=== PATIENT | female | born 1985 | race Caucasian/White ===

== ENCOUNTER 2018-01-28 06:51 | Inpatient (IN) | payer OTHER ==
[~2018-01-28] VITALS: Ht 154.9 cm; Wt 68.0 kg
[~2018-01-28 06:51] MED LIST: ADDERALL20 MG PO; ATIVAN0.5 MG PO; BIOTIN1000 MCG PO; BUSPIRONE10 MG PO; CLINDAMYCIN PHO30 ML TOP; CLONAZEPAM0.5 MG; CLONAZEPAM0.5 MG PO; DOLOBID500 MG PO; DOXYCYCLINE100 MG PO; ESCITALOPRAM20 MG PO; GABAPENTIN300 MG PO; KLONOPIN 1MG TAB1 MG PO; LEVSIN0.125 MG PO; LITHIUM CARBON300 M4 PO; LOMOTIL 0.025 M1 TAB PO; MAGNESIUM250 M1 PO; MEDROL DOSEPAK1 PAC PO; MIRTAZAPINE15 M2 PO; MOTRIN 600 MG600 MG PO; NEURONTIN300 MG PO; NEURONTIN800 M2 PO; ORTHO TRI-CYCLE1 TA1 PO; PERCOCET 325 MG1 TA2 PO; PRAZOSIN HCL1 MG; QUETIAPINE FUM200 M1 PO; RISPERIDONE0.5 MG PO; STRATTERA100 MG PO; TRAZODONE HCL50 M1 PO; TRAZODONE150 MG PO; TRETINOIN 0.05% TOP; ULTRAM(MONOGRAP50 MG PO; VENLAFAXINE HY150 MG PO; VENLAFAXINE HYD75 M1 PO; VIBRAMYCIN 100100 MG PO; VICODIN 300 MG-1 TAB PO; VITAMIN B COMPL1 CAP PO; VITAMIN C500 M3 PO; ZINC10 MG PO; ZOFRAN 4 MG TABL4 MG PO
[2018-01-28 07:49] LABS: ABSOLUTE BASOPHIL COUNT 0 /CUMM (0.0-0.2); ABSOLUTE EOSINOPHIL COUNT 0.5 /CUMM (0.0-0.7); ABSOLUTE LYMPH COUNT 3.3 /CUMM (1.2-3.4); ABSOLUTE MONOCYTE COUNT 0.5 /CUMM (0.10-0.60); BASOPHIL % 0.3 % (0.0-2.0); EOSINOPHIL % 5.9 % (0-5); GRANULOCYTE % 53.2 % (42.2-75.2); HEMATOCRIT 39.4 % (37-47); MEAN CORPUSCULAR HGB 30.1 PG (27.0-31.0); MEAN CORPUSCULAR HGB CONC 33.9 G/DL (33.0-37.0); MEAN CORPUSCULAR VOLUME 88.7 FL (81.0-99.0); MEAN PLATELET VOLUME 8.3 FL (7.4-10.4); PLATELET COUNT 297 /CUMM (130-400); RBC DISTRIBUTION WIDTH 13.2 % (11.5-14.5); RED BLOOD CELL CT 4.44 /CUMM (4.20-5.40); WHITE BLOOD CELL COUNT 9.4 /CUMM (4.8-10.8)
[2018-01-28] MEDS ORDERED: LINZESS290 MC1 PO (08:14)
[2018-01-28] MEDS ORDERED: DEXILANT60 M1 PO (08:14)
[2018-01-28] MEDS ORDERED: MELATONIN10 M2 PO (08:15)
[2018-01-28] MEDS ORDERED: ZUBSOLV 8.6-2.1 EACH SL (08:16)
--- NOTE | 2018-01-28 09:39 | ED GI/GU/ABDOMINAL COMPLAINT ---
History of Present Illness General Chief Complaint: Abdominal Pain/Flank Pain Stated Complaint: "UM I HAVE A KIDNEY INFECTION AND UTI AND PAIN" Source: patient, old records Exam Limitations: no limitations Vital Signs & Intake/Output Vital Signs & Intake/Output Vital Signs Date Time Temp Pulse Resp B/P B/P Pulse O2 O2 Flow FiO2 Mean Ox Delivery Rate 01/28 1035 98.3 59 12 101/55 100 Room Air 01/28 0731 98.0 75 15 112/71 100 Room Air Room Air Allergies Coded Allergies: cyclobenzaprine (PER PT HAS SAME ACTIVE INGREDIENTS COMPAZINE PER MD 09/23/15 ) sulfamethoxazole (Mild, Flu Like Sx 09/23/15) trimethoprim (Mild, Flu Like Sx 09/23/15) prochlorperazine (Seizure 09/23/15) Reconcile Medications Buprenorphine HCl/Naloxone HCl (Zubsolv 8.6-2.1 MG Tablet Sl) 8.6 MG-2.1 MG TAB.SUBL 1 TAB SL BID MAINTENCE (Reported) Dexlansoprazole (Dexilant) 60 MG CAP.BP 1 CAP PO DAILY GI (Reported) Gabapentin (Neurontin) 800 MG TABLET 1 TAB PO TID NEUROPATHY (Reported) Linaclotide (Linzess) 290 MCG CAPSULE 1 CAP PO DAILY GI (Reported) Melatonin 10 MG TABLET 1 TAB PO QPM SLEEP (Reported) Quetiapine Fumarate 200 MG TABLET 1 TAB PO QPM MENTAL HEALTH (Reported) Triage Note: PT TO ED FOR C/C OF L FLANK PAIN THAT RADIATES INTO GROIN AREA X 3 DAYS. PT RECENTLY DIAGNOSED WITH KIDNEY INFECTION LAST MONTH AND FINISHED COURSE OF ANTIBIOTICS APPROX 1 MONTH AGO. REPORTS SOME MILD NAUSEA WITHOUT VOMITING. +DYSURIA Triage Nurses Notes Reviewed? yes LMP (ages 10-50): unknown ? n Is pt currently ? No Onset: 1 month Duration: week(s):, constant, continues in ED, getting worse Timing: recent history Quality/Severity: aching, moderate, severe, stabbing Location: left flank Radiation: LLQ Activities at Onset: rest Prior Abdominal Problems: similar symptoms Past Sexual History: Unobtainable at this time Modifying Factors: Worsens With: palpation, urinating. Associated Symptoms: abdominal pain, dysuria, loss of appetite, lower back pain, urinary frequency HPI: 1 month prior to admission patient was started on Macrobid for dysuria frequency. 2 weeks prior to admission she had continued symptoms and Keflex was prescribed. Prior to admission she complained of sharp left flank pain radiating to the left lower quadrant with continued dysuria and frequency. She denies fever chills nausea vomiting diarrhea chest pain cough shortness of breath headache rash bleeding. Past History Travel History Traveled to [place] past 21 day No Medical History Any Pertinent Medical History? 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 No Review of Systems Review of Systems Constitutional: Reports: no symptoms. EENTM: Reports: no symptoms. Respiratory: Reports: no symptoms. Cardiovascular: Reports: no symptoms. GI: Reports: see HPI, abdominal pain. Genitourinary: Reports: see HPI, dysuria, frequency, pain. Musculoskeletal: Reports: no symptoms. Skin: Reports: no symptoms. Neurological/Psychological: Reports: no symptoms. Hematologic/Endocrine: Reports: no symptoms. Immunologic/Allergic: Reports: no symptoms. All Other Systems: Reviewed and Negative Physical Exam Physical Exam General Appearance: well developed/nourished, alert, awake, anxious, mild distress Head: atraumatic, normal appearance Eyes: Bilateral: normal appearance, PERRL, EOMI, normal inspection. Ears, Nose, Throat, Mouth: hearing grossly normal, moist mucous membrane Neck: normal inspection, supple, full range of motion, normal alignment, no midline tenderness Respiratory: normal breath sounds, chest non-tender, no respiratory distress, quiet respiration, lungs clear Cardiovascular: regular rate/rhythm, normal peripheral pulses, norml femoral pulses equa Peripheral Pulses: 4+ carotid (R), 4+ carotid (L) Gastrointestinal: normal bowel sounds, soft, non-tender, no organomegaly Back: normal inspection, normal range of motion, CVA tenderness (L), no vertebral tenderness Extremities: normal range of motion, no ligament instability Neurologic/Psych: no motor/sensory deficits, awake, alert, oriented x 3, normal gait, normal mood/affect, head of marketing II-XII nml as tested Skin: intact, normal color, warm/dry Core Measures ACS in differential dx? No Sepsis Present: No Sepsis Focused Exam Completed? No Progress Differential Diagnosis: intrauterine , kidney stone, ovarian cyst, PUD/ GERD, UTI/pyelo Plan of Care: Orders Procedure Date/time Status Regular Diet 01/28 L Active Patient Data 01/28 1140 Active OXYGEN SETUP (GEN) 01/28 1137 Active Saline Lock 01/28 1137 Active Admit to inpatient 01/28 1137 Active Vital Signs 01/28 113 Active Activity/Ambulation 01/28 113 Active Code Status 01/28 113 Active Add-on Test (ER Only) 01/28 0845 Active CULTURE,URINE 01/28 07 Active Intake & Output 01/28 0736 Active URINALYSIS 01/28 0656 Complete LIPASE 01/28 06 Complete HEPATIC FUNCTION PANEL 01/29 656 Complete HUMAN BETA HCG SCREEN 01/29 656 Complete CBC WITHOUT DIFFERENTIAL 01/29 656 Complete BASIC METABOLIC PANEL 01/29 656 Complete AMYLASE 01/28 0656 Complete Laboratory Tests 01/28/18 0808: Anion Gap 9, Estimated GFR > 60, BUN/Creatinine Ratio 13.3, Glucose 127 H, Calcium 8.8, Total Bilirubin 0.2, Direct Bilirubin 0.2, AST 36, ALT 42, Alkaline Phosphatase 45, Total Protein 6.3, Albumin 3.3 L, Amylase 64, Lipase 52, Total Beta HCG NEGATIVE 01/28/18 0737: Urine Color YEL, Urine Clarity HAZY H, Urine pH 6.0, Ur Specific [place] >= 1.030, Urine Protein NEG, Urine Ketones NEG, Urine Nitrite NEG, Urine Bilirubin NEG, Urine Urobilinogen 0.2, Ur Leukocyte Esterase SMALL H, Ur Microscopic SEDIMENT EXAMINED, Urine RBC RARE, Urine WBC 50-75 H, Ur Epithelial Cells MANY H, Urine Bacteria MANY H, Urine Mucus FEW, Urine Hemoglobin NEG, Urine Glucose NEG 01/28/18 0727: CBC w Diff NO MAN DIFF REQ, RBC 4.44, MCV 88.7, MCH 30.1, MCHC 33.9, RDW 13.2, MPV 8.3, Gran % 53.2, Lymphocytes % 35.4, Monocytes % 5.2, Eosinophils % 5.9 H, Basophils % 0.3, Absolute Granulocytes 5.0, Absolute Lymphocytes 3.3, Absolute Monocytes 0.5, Absolute Eosinophils 0.5, Absolute Basophils 0 Microbiology 01/28 737 URINE ROUT: Urine Culture - RECD Diagnostic Imaging: Viewed by Me: CT Scan. Discussed w/RAD: CT Scan. Radiology Impression: No acute findings in the abdomen or pelvis. Specifically, no evidence of urolithiasis, urinary tract obstruction or perinephric fluid/ edema. Initial ED EKG: none Departure Departure Disposition: STILL A PATIENT Condition: Fair Clinical Impression Primary Impression: Failure of outpatient treatment Secondary Impressions: Pyelonephritis Referrals: Patient Has No Primary Care Dr (PCP/Family) Departure Forms: Customer Survey General Discharge Information Admission Note Spoke With: Dano Ramos MD Documentation of Exam: Documentation of any treatments & extenuating circumstances including Concerns Regarding Discharge (functional status, medication knowledge or non-compliance, living conditions, etc.) that warrant an admission rather than observation: IV antibiotics as outpatient antibiotics x 2 were unsuccessful in eradicating UTI analgesia serial lab exam follow cultures which will be completed in over 48 hours medication adjustment continuing care discharge planning
--- NOTE | 2018-01-28 09:59 | CT SCAN REPORT ---
EXAMINATION: CT ABDOMEN AND PELVIS WITHOUT CONTRAST CLINICAL INFORMATION: Renal colic. Left flank, costovertebral tenderness pain. Dysuria. COMPARISON: None TECHNIQUE: Multidetector volumetric imaging was performed from the superior aspect of the liver through the pubic symphysis. Sagittal and coronal reformatted images were obtained on the technologist's workstation. DLP: 327 mGy-cm FINDINGS: LUNG BASES: Unremarkable. LIVER, GALLBLADDER, AND BILIARY TREE: Unremarkable. PANCREAS: Unremarkable. SPLEEN: Unremarkable. ADRENAL GLANDS: Unremarkable. KIDNEYS AND URETERS: Kidneys have normal size, cortical thickness and attenuation. No urolithiasis, hydroureteronephrosis, perinephric fluid or perinephric edema. Two phleboliths are seen in the left lower pelvis. BLADDER: Unremarkable. GASTROINTESTINAL TRACT: Bowel loops are normal in caliber. Appendix is normal. No evidence of inflammation or obstruction along the gastrointestinal tract. No ascites or pneumoperitoneum. ABDOMINAL WALL: Unremarkable. LYMPH NODES: Normal. VASCULAR: Unremarkable for a noncontrast examination. Abdominal aorta is normal in caliber. PELVIC VISCERA: The anteflexed uterus is grossly normal. No adnexal mass or pelvic free fluid. OSSEOUS STRUCTURES: At T9-T10, there is degenerative disc space narrowing, endplate irregularity and osteophyte formation. Bone island of the inferior right iliac bone. No suspicious osseous lesions. IMPRESSION: No acute findings in the abdomen or pelvis. Specifically, no evidence of urolithiasis, urinary tract obstruction or perinephric fluid/edema.
--- NOTE | 2018-01-28 12:11 | History & Physical ---
Willian Hernandez 01/28/18 1210: General Information and HPI MD Statement: I have seen and personally examined DARIN MARTE and documented this H&P. The patient is a 32 year old F who presented with a patient stated chief complaint of [abdominal pain and dysuria]. Source of Information: patient, old records Exam Limitations: no limitations History of Present Illness: 32-year-old woman [id number], past history significant for substance abuse disorder on Zubsolv, history of suicide attempt, recurrent UTIs coming in for evaluation of abdominal pain and dysuria. She was recently treated by her PCP Dr. Giuliana Vigil December 27 with 3 days of ciprofloxacin and nitrofurantoin 7 days with metronidazole. Patient states that she noticed some mild improvement however the last few days she reports having sharp lower abdominal pain left side more than right side with some radiation to her left side of her back. A few days ago the pain was severe 10 out of 10. Yesterday she reports some mild chills, nausea and dysuria and increased frequency of 2 days duration. Denies fevers, shortness of breath, chest pain, palpitation, hematuria, vaginal discharge, rashes, joint pain or vomiting. Currently in a monogamous heterosexual relationship. Reports having multiple partners last year. Denies history of STDs in the past. Her last menstrual period was 3 weeks ago. States that she has normal menses with no excessive bleeding. Allergies/Medications Allergies: Coded Allergies: cyclobenzaprine (PER PT HAS SAME ACTIVE INGREDIENTS COMPAZINE PER 09/23/15 ) sulfamethoxazole (Mild, Flu Like Sx 09/23/15) trimethoprim (Mild, Flu Like Sx 09/23/15) prochlorperazine (Seizure 09/23/15) Compliance With Home Meds: GOOD Past History Travel History Traveled to [place] past 21 day No Medical History Neurological: NONE EENT: NONE Cardiovascular: hyperlipidemia Respiratory: asthma Gastrointestinal: NONE Hepatic: NONE Renal: NONE Musculoskeletal: chronic back pain, fracture Psychiatric: anxiety, bipolar disease, depression, insomnia, substance abuse ( using Marijuana; rx'd Klonopin) Endocrine: NONE Blood Disorders: NONE Cancer(s): NONE 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 Exam & Diagnostic Data Last 24 Hrs of Vital Signs/I&O Vital Signs Date Time Temp Pulse Resp B/P B/P Pulse O2 O2 Flow FiO2 Mean Ox Delivery Rate 01/28 1401 97.9 61 12 100/59 100 Room Air 01/28 1035 98.3 59 12 101/55 100 Room Air 01/28 0731 98.0 75 15 112/71 100 Room Air Room Air Intake & Output 01/28 1600 01/28 0800 01/28 0000 Intake Total 0 Output Total Balance 0 Intake, Oral 0 Physical Exam General Appearance Alert, Oriented X3, Cooperative, No Acute Distress Skin No Significant Lesion, TATTOOS PRESENT HEENT Atraumatic, EOMI, Mucous Membr. moist/pink Cardiovascular Regular Rate, Normal S1, Normal S2 Lungs Clear to Auscultation, Normal Air Movement Abdomen Soft, MILD TENDERNESS TO PALPALTION L>R LOWER ABD. WITH MILD L CVA TENDERNESS Extremities No Edema, Normal Pulses Diagnostic Data Other Results SERVICE DATE: 01/28/18 EXAM TYPE: CAT - CT ABD & PELVIS W/O IV CONTRASt FINDINGS: LUNG BASES: Unremarkable. LIVER, GALLBLADDER, AND BILIARY TREE: Unremarkable. PANCREAS: Unremarkable. SPLEEN: Unremarkable. ADRENAL GLANDS: Unremarkable. KIDNEYS AND URETERS: Kidneys have normal size, cortical thickness and attenuation. No urolithiasis, hydroureteronephrosis, perinephric fluid or perinephric edema. Two phleboliths are seen in the left lower pelvis. BLADDER: Unremarkable. GASTROINTESTINAL TRACT: Bowel loops are normal in caliber. Appendix is normal. No evidence of inflammation or obstruction along the gastrointestinal tract. No ascites or pneumoperitoneum. ABDOMINAL WALL: Unremarkable. LYMPH NODES: Normal. VASCULAR: Unremarkable for a noncontrast examination. Abdominal aorta is normal in caliber. PELVIC VISCERA: The anteflexed uterus is grossly normal. No adnexal mass or pelvic free fluid. OSSEOUS STRUCTURES: At T9-T10, there is degenerative disc space narrowing, endplate irregularity and osteophyte formation. Bone island of the inferior right iliac bone. No suspicious osseous lesions. IMPRESSION: No acute findings in the abdomen or pelvis. Specifically, no evidence of urolithiasis, urinary tract obstruction or perinephric fluid/edema. Assessment/Plan Assessment: 32-year-old woman [id number], past history significant for Substance use disorder on Zubsolv, history of suicide attempt, recurrent UTIs coming in for evaluation of abdominal pain and dysuria. Labs significant for negative test, with mild leukocyte esterase on UA. CT abdomen and pelvis without contrast showed no acute findings in the abdomen or pelvis. Specifically, no evidence of urolithiasis, urinary tract obstruction or perinephric fluid/edema. Problem list Left flank pain LYNETTE plan Admit to general medicine floor Vitals per protocol We will continue with IV ceftriaxone pending urine cultures Of note her urine has not grown anything in the past Continue with her home meds of Zubsolv, Seroquel, Linzess. Our pharmacy did not does not carry dexilant. DVT prophylaxis subcu Lovenox Regular diet Full code As Ranked By This Provider Problem List: 1. Lower urinary tract infectious disease Core Measures/Misc (04/08) Acute Coronary Syndrome ACS Diagnosis: No Congestive Heart Failure Congestive Heart Failure Diagnosis No Cerebrovascular Accident CVA/TIA Diagnosis: No VTE (View Protocol) VTE Risk Factors Acute Medical Illness No Mechanical VTE Prophylaxis d/t N/A MechProphylax Ordered No VTE Pharm Prophylaxis d/t NA PharmProphylax ordered Sepsis (View protocol) Sepsis Present: No If YES complete Sepsis Event Note If YES complete Sepsis Event Note Dano Ramos MD 01/28/18 5607: General Information and HPI MD Statement: I have seen and personally examined DARIN MARTE and documented this H&P. The patient is a 32 year old F who presented with a patient stated chief complaint of []. Allergies/Medications Home Med list Buprenorphine HCl/Naloxone HCl (Zubsolv 8.6-2.1 MG Tablet Sl) 8.6 MG-2.1 MG TAB.SUBL 1 TAB SL BID MAINTENCE (Reported) Cefdinir 300 MG CAPSULE 1 CAP PO BID UTI . Dexlansoprazole (Dexilant) 60 MG CAP.BP 1 CAP PO DAILY GI (Reported) Gabapentin (Neurontin) 800 MG TABLET 1 TAB PO TID NEUROPATHY (Reported) Linaclotide (Linzess) 290 MCG CAPSULE 1 CAP PO DAILY GI (Reported) Melatonin 10 MG TABLET 1 TAB PO QPM SLEEP (Reported) Phenazopyridine HCl 100 MG TABLET 100 MG PO PC PRN Dysuria . Quetiapine Fumarate 200 MG TABLET 1 TAB PO QPM MENTAL HEALTH (Reported) Core Measures/Misc (04/08) Sepsis (View protocol) If YES complete Sepsis Event Note If YES complete Sepsis Event Note Attending MD Review Statement Attending Statement Attending MD Statement: examined this patient, discuss w/resident/PA/CAKE PULLER, agreed w/resident/PA/CAKE PULLER, reviewed EMR data (avail), reviewed images, amended to note Attending Assessment/Plan: The patient is a 32 yo female with h/o substance abuse on Zubsolv), depression and suicide attempt, and recurrent UTI's who presented in the ED for evaluation of abdominal/pelvic pain, left flank pain, and dysuria (burning) and increased urinary frequency. Symptoms have been worsening over several days. Had recent treatment for UTI ([facility]) with Cipro and subsequent Macrodantin. She stated she felt feverish (no fever in ED). Her boyfriend was also being seen in ED. Physical Exam: VS: T 98.0, P 75, R 15, BP 112/71, PO 100% RA HEENT: eyes- PERRLA, EOMI hasmukh- moist mucosa, no lesions Neck: no adenopathy Chest: clear Cor: RRR nl S1, S2 w/o murm Abd: BS+, mild LQ abdominal tenderness (L>R) w/o guarding/rebound, ? minimal left CVAT Ext: no edema, pulses 2+ Neuro: alert & oriented x 3, non-focal exam Labs/Tests- as above Impression/Plan: #UTI- with pyuria and ? left flank pain suggesting possibility of early pyelonephritis (no radiographic evidence on CT). Plan: Admit to medicine. IV Ceftriaxone 1 g q24 hr (begun in ED). Check urine culture and obtain results from prior cultures (outside PCP) . Pyridium for dysuria. #Psych- h/o depression, on meds. Plan: Continue Seroquel, Gabapentin. #GERD- on Dexilant. Plan: Substitute Omeprazole in hospital. #H/O Substance Abuse- on Zubsolv. Plan: Will continue usual med- dose verified with PCP.
--- NOTE | 2018-01-28 15:07 | Admission Certification ---
Admission Certification Certification Statement - As attending physician, I certify that at the time of - admission, based on clinical presentation, severity of - symptoms, need for further diagnostic testing and - therapeutic interventions, and risk of adverse outcomes - without in-hospital treatment, in my clinical assessment, - this patient requires an acute hospital stay for a minimum - of two nights or longer. I have also considered psychsocial - factors such as support system, advanced age, financial - issues, cognitive issues, and failed out-patient treatments, - past re-admission history, safety of patient, and lack of - compliance as applicable. Specific rationale supporting this admission is: The patient presents with some left flank pain, pyuria, dysuria c/w UTI with ED questioning early pyelonephritis. Has been on po Cipro/Macrodantin recently- ? failed OP regimen. Admit and drummond culture. IV Ceftriaxone. Pyridium for dysuria.
[2018-01-28 20:45] VITALS: BP 110/70
[2018-01-29 06:32] VITALS: BP 112/75
[2018-01-29 08:21] LABS: ABSOLUTE BASOPHIL COUNT 0 /CUMM (0.0-0.2); ABSOLUTE EOSINOPHIL COUNT 0.5 /CUMM (0.0-0.7); ABSOLUTE GRANULOCYTE CT 5.5 /CUMM (1.4-6.5); ABSOLUTE LYMPH COUNT 3.8 /CUMM (1.2-3.4); ABSOLUTE MONOCYTE COUNT 0.5 /CUMM (0.10-0.60); BASOPHIL % 0.2 % (0.0-2.0); EOSINOPHIL % 4.9 % (0-5); GRANULOCYTE % 52.9 % (42.2-75.2); HEMATOCRIT 35.3 % (37-47); MEAN CORPUSCULAR HGB 30.2 PG (27.0-31.0); MEAN CORPUSCULAR HGB CONC 33.8 G/DL (33.0-37.0); MEAN CORPUSCULAR VOLUME 89.4 FL (81.0-99.0); MEAN PLATELET VOLUME 8.5 FL (7.4-10.4); PLATELET COUNT 266 /CUMM (130-400); RBC DISTRIBUTION WIDTH 13.3 % (11.5-14.5); RED BLOOD CELL CT 3.95 /CUMM (4.20-5.40)
[2018-01-29] MEDS ORDERED: CIPRO500 M1 PO (08:31)
[2018-01-29] MEDS ORDERED: PHENAZOPYRIDIN100 M3 PO ×2 (08:31→13:10)
--- NOTE | 2018-01-29 08:33 | Patient Discharge Instructions ---
Discharge Instructions General Discharge Information You were seen/treated for: Urinary tract infection Watch for these problems: Fever chest pain or shortness of breath Special Instructions: Please take all medications as directed. Please follow-up with primary care. Diet Continue normal diet: Yes Activity Full Activity/No Limits: Yes Acute Coronary Syndrome Inclusion Criteria At DC or during hospital stay patient has or had the following: ACS DIAGNOSIS No Discharge Core Measures Meds if any: Prescribed or Continued at Discharge Meds if any: NOT Prescribed or Continued at Discharge Congestive Heart Failure Inclusion Criteria At DC or during hospital stay patient has or had the following: CHF DIAGNOSIS No Discharge Core Measures Meds if any: Prescribed or Continued at Discharge Meds if any: NOT Prescribed or Continued at Discharge Cerebrovascular accident Inclusion Criteria At DC or during hospital stay patient has or had the following: CVA/TIA Diagnosis No Discharge Core Measures Meds if any: Prescribed or Continued at Discharge Meds if any: NOT Prescribed or Continued at Discharge Venous thromboembolism Inclusion Criteria VTE Diagnosis No VTE Type NONE VTE Confirmed by (Test) NONE Discharge Core Measures - Per Current guidelines, there needs to be overlap - treatment for the first 5 days of Warfarin therapy. - If discharged on Warfarin prior to 5 days of - overlap therapy, the patient will need to be - assessed for post discharge needs including - *Post discharge parental anticoagulation - *Warfarin and/or parental anticoagulation education - *Follow up date to check INR post discharge At least 5 days overlap therapy as Inpatient No Meds if any: Prescribed or Continued at Discharge Note: Overlap Therapy is Warfarin and Anticoagulant Meds if any: NOT Prescribed or Continued at Discharge
[2018-01-29 09:05] LABS: WHITE BLOOD CELL COUNT 10.3 /CUMM (4.8-10.8)
--- NOTE | 2018-01-29 09:11 | PN- Housestaff ---
See Addendum Subjective Follow-up For: uti Complaints: pain scale (0-10), 5/10 abdominal and left flank Subjective: Patient states she continues to have left flank pain and suprapubic pain/dysuria /. She states she slept okay overnight. She states she did not receive her morning dose of Suboxone and so she feels a little sweaty. Denies fever, n/v/d, chest pain, SOB. Review of Systems Constitutional: Reports: see HPI. Objective Last 24 Hrs of Vital Signs/I&O Vital Signs Date Time Temp Pulse Resp B/P B/P Pulse O2 O2 Flow FiO2 Mean Ox Delivery Rate 01/29 0632 98.1 70 16 112/75 96 Room Air 01/28 2045 98.0 75 16 110/70 97 Room Air 01/28 1942 98.3 60 16 108/62 100 Room Air / 1822 97.8 58 18 111/58 100 Room Air / 1613 67 18 107/76 99 Room Air 01/28 1401 97.9 61 12 100/59 100 Room Air 01/28 1035 98.3 59 12 101/55 100 Room Air Intake & Output 01/29 1600 07/10 0800 07/10 0000 Intake Total 120 480 Output Total Balance 120 480 Intake, Oral 120 480 Patient 150 lb Weight Weight Bed scale Measurement Method Physical Exam General Appearance: Alert, Oriented X3, Cooperative, No Acute Distress Skin: No Rashes Skin Temp/Moisture Exam: Warm/Dry HEENT: Atraumatic, PERRLA Neck: Supple Cardiovascular: Regular Rate, Normal S1, Normal S2, No Murmurs Lungs: Clear to Auscultation Abdomen: Normal Bowel Sounds, Soft, tender to palpation suprapubic region, LLQ, left flank CVA Neurological: Normal Tone, Sensation Intact Extremities: No Edema, Normal Pulses Assessment/Plan Assessment: 32 year old female with PMH significant for multiple UTI, substance use disorder (on suboxone), h/o suicide attempt. Work up for was negative. Patient is currently on the patch for control. She was recently treated by her PCP Dr. Giuliana Vigil December 27 with 3 days of ciprofloxacin and nitrofurantoin 7 days with metronidazole and symtpoms persist. UA in ED was not a clean catch but positive for leukocytes, nit negative. CT abd/pelv was unremarkable for stone or obstruction. Problem List: 1. UTI with symptoms: dysuria/suprapubic tenderness/left flank pain #UTI -IV ceftriaxone -Will contact her PCP clinic to see previous urine culture sensitivities -Suggested patient take Vitamin C to increase the acidity of her urine to possible help with repeat UTI and will need further work up by Urology for origin of recurrent UTI. -Pyridium 100mg PO for urinary symptom relief Dispo: Will dc today home self/care DVT prophylaxis: lovenox/ALPS/ambulation Problem List: 1. UTI (urinary tract infection) Pain Ratin Pain Location: suprapubic and left flank Pain Goal: Pain 4 or less Pain Plan: see a/p Tomorrow's Labs & Rationales: none
[2018-01-29] MEDS ORDERED: CEFDINIR300 M1 PO ×2 (11:56→13:10)
--- NOTE | 2018-01-29 15:42 | Discharge Summary ---
Visit Information Visit Dates Admission Date: 01/28/18 Discharge Date: 01/29/18 Hospital Course Course Attending Physician: Dano Ramos MD Primary Care Physician: Izabela Vigil MD Hospital Course: 32 year old female with PMH significant for multiple UTI, substance use disorder (on suboxone), h/o suicide attempt. Work up for was negative. Patient is currently on the patch for control. She was recently treated by her PCP Dr. Giuliana Vigil December 27 with 3 days of ciprofloxacin and nitrofurantoin 7 days with metronidazole and symtpoms persist. UA in ED was not a clean catch but positive for leukocytes, nit negative. CT abd/pelv was unremarkable for stone or obstruction. She was admitted to the general medicine service for treatment of the following: Problem List: 1. UTI with symptoms: dysuria/suprapubic tenderness/left flank pain Admission Data: T98.0 P75 BP 112/71 Sat 100%RA. CT abd/pelv negative. UA positive for leukocytes and negative for nitrates. #UTI treated with IV ceftriaxone while in the hospital and discharged with a prescription for Cefdinir and phenazopyridine. Patient's PCP clinic did not do urine culture and culture results were negative here. It was recommended that she take Vitamin C to increase the acidity of her urine to possible help with repeat UTI and will need further work up by Urology for origin of recurrent UTI. On 01/29 she was stable to discharge home with continued antibiotic treatment and follow up with PCP and urology. Allergies: Coded Allergies: cyclobenzaprine (PER PT HAS SAME ACTIVE INGREDIENTS COMPAZINE PER 09/23/15 ) sulfamethoxazole (Mild, Flu Like Sx 09/23/15) trimethoprim (Mild, Flu Like Sx 09/23/15) prochlorperazine (Seizure 09/23/15) Disposition Summary Disposition Principal Diagnosis: uti Additional Diagnosis: none Discharge Disposition: home or self care Discharge Instructions General Discharge Information Code Status: Full Code Patient's Diet: regular Patient's Activity: as tolerated Follow-Up Instructions/Appts: Follow up with your PCP Take all medications as prescribed You will need to see a urologist in the future if continue recurrent UTI Medications at Discharge Discharge Medications: Continue taking these medications: Quetiapine Fumarate (Quetiapine Fumarate) 200 MG TABLET 1 Tablet ORAL Every night Comments: Last Taken: 01/28/18 Time: 2200PM Gabapentin (Neurontin) 800 MG TABLET 1 Tablet ORAL THREE TIMES DAILY Comments: Last Taken: 01/29/18 Time: 0900AM Linaclotide (Linzess) 290 MCG CAPSULE 1 Capsule ORAL DAILY Qty = 30 Comments: Last Taken: 01/29/18 Time: 0900AM Dexlansoprazole (Dexilant) 60 MG 1 Capsule ORAL DAILY Qty = 30 Comments: NOT GIVEN IN HOSPITAL Melatonin (Melatonin) 10 MG TABLET 1 Tablet ORAL Every night Comments: Last Taken: 01/28/18 Time: 2100PM Buprenorphine HCl/Naloxone HCl (Zubsolv 8.6-2.1 MG Tablet Sl) 8.6 MG-2.1 MG TAB.SUBL 1 Tablet SUBLINGUAL TWICE DAILY Qty = 28 Comments: Last Taken: 01/29/18 Time: 0900AM Start taking the following new medications: Cefdinir (Cefdinir) 300 MG CAPSULE 1 Capsule ORAL TWICE DAILY Qty = 6 No Refills Instructions: . Comments: NOT GIVEN IN HOSPITAL Phenazopyridine HCl (Phenazopyridine HCl) 100 MG TABLET 100 Milligram ORAL AFTER MEALS as needed for Dysuria Qty = 20 No Refills Instructions: . Comments: Last Taken: 01/29/18 Time: 0900AM Copies To: Dano Ramos MD Attending Review Statement Documenting Attending: Dano Ramos MD Other Findings: The patient was seen and discussed with house staff. No clinical pyelonephritis and patient improved significantly. No fever or significant pain. Dysuria improved. She was treated a month ago with Cipro/Macrodantin and Metronidazole ( for bacterial vaginosis). None of her urine cultures done at [facility] have ever been positive and recent UTI was treated empirically without culture. Suggest OP Urology evaluation. May benefit from ascorbic acid.
== END 2018-01-29 14:37 | DRG 463 ==
LOC: ERH 06:51 → ERHI 11:37 → 2NB 11:37 → ENRESERV 18:17 → ENTRNSPT 19:56 → EDTRNSPTSTS 20:08 → 2NB 20:15 → CMPTRNSPT 20:24 → ENPENDDIS 01-29 13:24 → 2NB 01-29 14:37
PROVIDERS: Internal Medicine; Pediatrics
DX: N39.0 Urinary tract infection, site not specified (principal); K21.9 Gastro-esophageal reflux disease without esophagitis; F19.10 Other psychoactive substance abuse, uncomplicated; F12.10 Cannabis abuse, uncomplicated; E78.5 Hyperlipidemia, unspecified; F31.9 Bipolar disorder, unspecified
CPT/HCPCS: 2NBP; 36592; 74176; 81001; 82436; 87086; 96374; 96375; J0696; J1650; J1885